=== PATIENT | male | born 1950 | race Caucasian/White ===

== ENCOUNTER 2019-02-11 08:36 | Day surgery (SDC) | payer MEDICARE ==
[~2019-02-11] VITALS: Ht 182.9 cm; Wt 112.0 kg
[~2019-02-11 08:36] MED LIST: ALBU90OI61 INH; AMOCLA875 PO; ASPI81EC PO; ATOR40TA PO; Cymbalta30 MG PO; DOXA1 PO; Diovan160 MG PO; Diovan320 MG; FENO145 PO; FISH OIL 1,0001 EAC1 PO; LISHYD2025 PO; LISI20 PO; NEBI5 PO; OXYACE5T PO; ROSU5 PO; RXOXYACE PO; VITAMIN D32000 UNIT PO
== END 2019-02-11 10:55 | disposition home or self-care (01) ==
LOC: ORSCSDS 08:36
PROVIDERS: Surgery
PROC: 0DBN8ZX Excision of Sigmoid Colon, Via Natural or Artificial Opening Endoscopic, Diagnostic (ICD-10-PCS; principal; 2019-02-11 09:45)
PROC: 0DBM8ZX Excision of Descending Colon, Via Natural or Artificial Opening Endoscopic, Diagnostic (ICD-10-PCS; principal; 2019-02-11 09:45)
PROC: 0DBK8ZX Excision of Ascending Colon, Via Natural or Artificial Opening Endoscopic, Diagnostic (ICD-10-PCS; principal; 2019-02-11 09:45)
DX: Z12.11 Encounter for screening for malignant neoplasm of colon (principal); D12.2 Benign neoplasm of ascending colon; D12.4 Benign neoplasm of descending colon; K63.5 Polyp of colon; Z86.010 Personal history of colon polyps; Z80.0 Family history of malignant neoplasm of digestive organs; I10 Essential (primary) hypertension; J44.9 Chronic obstructive pulmonary disease, unspecified; E11.9 Type 2 diabetes mellitus without complications; Z87.891 Personal history of nicotine dependence; Z79.82 Long term (current) use of aspirin; Z79.899 Other long term (current) drug therapy
CPT/HCPCS: 82947; 88305; J2704; J7120

== ENCOUNTER 2023-03-28 15:31 | Emergency (ER) | payer MEDICARE ==
[~2023-03-28] VITALS: Ht 182.9 cm; Wt 91.6 kg
[~2023-03-28 15:31] MED LIST changes: +ALBU90OI INH; -ALBU90OI61 INH; +ASPI81CH PO; -ASPI81EC PO
[2023-03-28 15:38] VITALS: BP 102/84
[2023-03-28] MEDS ORDERED: CEPH500 PO (16:35)
[2023-03-28] MEDS ORDERED: Norco 5-325 Ta1 EACH PO (17:17)
== END 2023-03-28 17:35 | disposition home or self-care (01) ==
LOC: ER 15:31
DX: S61.412A Laceration without foreign body of left hand, initial encounter (principal); I10 Essential (primary) hypertension; W29.3XXA Contact with powered garden and outdoor hand tools and machinery, initial encounter; Z79.82 Long term (current) use of aspirin; Z79.899 Other long term (current) drug therapy; Z87.891 Personal history of nicotine dependence
CPT/HCPCS: 73120; 90714; A9270

== ENCOUNTER → 2025-08-18 | Outpatient (CLI) | payer MEDICARE ==
[~2025-08-18] MED LIST changes: +CEPH500 PO; +Norco 5-325 Ta1 EACH PO
== END ==
LOC: LAB SHORT 15:15 → LAB 15:15
DX: R35.0 Frequency of micturition (principal)
CPT/HCPCS: 87086